=== PATIENT | male | born 1955 | race American Indian/Alaskan Native ===

== ENCOUNTER 2017-04-15 05:51 | Day surgery (SDC) | payer MEDICAID ==
[2017-04-15] MEDS ORDERED: NACL 0.9% 500 ML 500 ML IV SCH (07:00)
[2017-04-15 07:04] LABS: Basophils % (Auto) 1.1 % (0.0-1.8); Eosinophils % (Auto) 2.7 % (0.0-4.3); Hemoglobin 13.7 gm/dl (11.8-15.2); Mean Corpuscular HGB Conc 34 % (32-34); Mean Corpuscular Hemoglobin 31 pg (28-32); Mean Corpuscular Volume 91 fl (84-94); Platelet Count 187 K/mm3 (140-440); Red Blood Count 4.42 M/mm3 (3.65-5.03); Red Cell Distribution Width 13.4 % (13.2-15.2); White Blood Count 6.5 K/mm3 (4.5-11.0)
[2017-04-15 07:15] LABS: INR 0.98 (0.87-1.13)
[2017-04-15 07:18] LABS: Anion Gap 15 mmol/L; BUN/Creatinine Ratio 11; Blood Urea Nitrogen 15 mg/dL (9-20); Calcium 8.3 mg/dL (8.4-10.2); Carbon Dioxide 27 mmol/L (22-30); Chloride 98.2 mmol/L (98-107); Glucose 123 mg/dL (75-100); Potassium 4.1 mmol/L (3.6-5.0); Sodium 136 mmol/L (137-145)
[2017-04-15] MEDS ORDERED: HEPARIN ONE (07:55)
[2017-04-15] MEDS ORDERED: HEPARIN/NS 5000 UNIT/500ML(CATH LAB) 1,000 ML IR ONE (07:55)
[2017-04-15] MEDS ORDERED: VERSED ONE (07:56)
[2017-04-15] MEDS ORDERED: SUBLIMAZE ONE (07:56)
[2017-04-15] MEDS ORDERED: CALAN ONE (07:56)
[2017-04-15] MEDS ORDERED: XYLOCAINE 2% INFILTRATI ONE ×4 (07:56→08:18)
[2017-04-15] MEDS ORDERED: NITROGLYCERIN SYRINGE 0 ML ONE (07:57)
[2017-04-15] MEDS ORDERED: HEPARIN 10,000 UNITS/10 ML ONE (07:59)
[2017-04-15] MEDS ORDERED: VERSED IV ONE (08:12)
--- NOTE | 2017-04-15 08:52 | Short Stay Summary ---
Short Stay Documentation Date of service: 04/15/17 - History H&P: obtained from office - Allergies and Medications Current Medications: Allergies No Known Allergies Allergy (Verified 04/15/17 06:15) Home Medications Medication Instructions Recorded Confirmed Last Taken Type Allopurinol [Allopurinol] 300 mg PO DAILY 04/15/17 04/15/17 04/15/17 04:30 History Carvedilol Nicu (1.67 mg/ml) 04/15/17 Unknown History [Coreg NICU dilution] Carvedilol [Coreg] 37.5 mg PO BID 04/15/17 04/15/17 04/15/17 04:30 History Diclofenac Sodium [Diclofenac 75 mg PO PRN PRN 04/15/17 04/15/17 Unknown History Sodium] Furosemide [Furosemide] 40 mg PO BID 04/15/17 04/15/17 04/15/17 04:30 History Spironolactone [Spironolactone] 50 mg PO DAILY 04/15/17 04/15/17 04/14/17 History hydrALAZINE [Apresoline] 50 mg PO Q8H 04/15/17 04/15/17 04/15/17 04:30 History Active Medications Sodium Chloride (Nacl 0.9% 500 Ml) 500 mls @ 50 mls/hr IV DIRECT THOR Stop: 04/15/17 16:59 - Physical exam General appearance: no acute distress Integumentary: no rash HEENT: Atraumatic Lungs: Clear to auscultation Breasts: deferred Heart: Regular rate Gastrointestinal: normal Male Genitourinary: deferred Female Genitourinary: deferred Rectal Exam: deferred Extremities: no ischemia Neurological: Normal gait - Brief post op/procedure progress note Date of procedure: 04/15/17 Pre-op diagnosis: AI, Abnormal MPI Post-op diagnosis: same Procedure: LHC, RHC, LG gram and aortogram Anesthesia: MAC Findings: See report Surgeon: SIS BRICEÑO Estimated blood loss: none Pathology: none Condition: stable - Hospital course Hospital course: Uneventful - Disposition Condition at discharge: Good Disposition: DC-01 TO HOME OR SELFCARE Short Stay Discharge Plan Activity: no driving until cleared by PCP (for 2 days) Weight Bearing Status: Non-Weight Bearing (for 2 days) Diet: low fat, low salt Wound: keep clean and dry Follow up with: KRIS GERMAN MD [Primary Care Provider] - 7 Days
[2017-04-15] MEDS ORDERED: NACL 0.9% 1000 ML 1,000 ML IV SCH (09:00)
--- NOTE | 2017-04-15 09:58 | Cardiac Catherization Report ---
LEFT AND RIGHT HEART CATHETERIZATION ORDERING PHYSICIAN: ____ INDICATION FOR PROCEDURE: Shortness of breath, abnormal myocardial perfusion imaging, severe aortic regurgitation, aortic root dilatation. PROCEDURES PERFORMED: 1. Selective left and right coronary angiography. 2. Left ventriculography. 3. Ascending aortography. 4. Right heart catheterization with hemodynamic measurement and oxygen saturation run. DESCRIPTION OF PROCEDURE: After obtaining written consent, the patient was draped using sterile technique. A 2% lidocaine was injected into the right groin. A 5-Mongolian vascular sheath was inserted into the right common femoral artery. An 8-Mongolian vascular sheath was inserted into the right common femoral vein. A 7-Mongolian Constable-Keenan catheter was used to measure right-sided hemodynamics and performed oxygen saturation run. A 5-Mongolian JL5 catheter was used to selectively engage the left coronary artery. A 5-Mongolian JR4 catheter was used to selectively engage the right coronary artery. A 5-Mongolian pigtail catheter was used to perform a left ventriculogram. A 5-Mongolian pigtail catheter was used to perform an ascending aortogram. Hemostasis was achieved at the end of the procedure using 6-Mongolian Angio-Seal device. No complications occurred during the procedure. ESTIMATED BLOOD LOSS: Minimal. SPECIMEN REMOVED: None. FINDINGS: HEMODYNAMICS: 1. The mean pulmonary capillary wedge pressure was 16 mmHg. 2. The pulmonary artery systolic pressure 29 mmHg, pulmonary artery diastolic pressure 12 mmHg, and mean pulmonary artery pressure was 22 mmHg. 3. Right ventricular systolic pressure 33 mmHg, left ventricular end-diastolic pressure 10 mmHg. 4. Mean right atrial pressure 8 mmHg. 5. Aortic pressure is 99/59 with an LV systolic pressure of 99 mmHg and LVEDP of 20 mmHg. 6. The Margot cardiac output is 5.54 liters per minute. 7. Margot cardiac index 2.38 liters per minute per meter squared. 8. PA saturation is 62%, right ventricular saturation is 62%, right atrial saturation is 64%, superior vena cava saturation is 62%, aortic saturation 94%. CARDIAC STRUCTURES: 1. The left ventricular cavity is mildly dilated. There is evidence of moderate global left ventricular hypokinesis with an ejection fraction estimated at 40%. 2. The ascending aortic root is dilated measuring 56 mm at the sinus of Valsalva and 47 mm at the sinotubular junction. 3. There is evidence of significant aortic regurgitation noted. CORONARY ANATOMY: 1. This is a right dominant circulation. 2. The left main is a short, angiographically normal vessel. 3. The LAD is angiographically normal. 4. The left circumflex artery is angiographically normal. 5. The right coronary artery is angiographically normal. IMPRESSION: 1. Angiographically normal coronary arteries. 2. Moderate global left ventricular hypokinesis with an ejection fraction estimated at 40% and mild left ventricular cavity dilatation. 3. Evidence of aortic root dilatation. The sinus of Valsalva diameter measures 56 mm and the sinotubular junction measures 47 mm. 4. Evidence of significant aortic regurgitation. 5. Normal filling pressures with no evidence of pulmonary hypertension. 6. Preserved cardiac output with no evidence of an intracardiac shunt. RECOMMENDATIONS: 1. 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 2. Surgical evaluation for aortic valve replacement or repair as well as aortic root repair. JOB# [id number] CHANDA/DIRK
[2017-04-15 11:22] VITALS: BP 120/60
== END 2017-04-15 11:50 | disposition home or self-care (01) ==
LOC: CATHLABREC 05:51
PROVIDERS: ATTEND Internal Medicine
DX: I35.1 Nonrheumatic aortic (valve) insufficiency (principal); I77.819 Aortic ectasia, unspecified site; M10.9 Gout, unspecified; M13.88 Other specified arthritis, other site; I11.0 Hypertensive heart disease with heart failure; I42.9 Cardiomyopathy, unspecified; I27.20 Pulmonary hypertension, unspecified; I50.22 Chronic systolic (congestive) heart failure
CPT/HCPCS: 36415; 80048; 85025; 85610; 85730; 93005; 93010; 93460; 93567; 99152; C1760; J1644; J2250; J3010; J7040; Q9967